=== PATIENT | male | born 1965 | race Caucasian/White ===

== ENCOUNTER 2016-11-10 19:27 | Emergency (ER) | payer OTHER ==
[~2016-11-10] VITALS: Ht 172.7 cm; Wt 68.0 kg
[~2016-11-10 19:27] MED LIST: DOXYCYCL HYC100 M4 PO; NAPROSYN500 MG PO; NO
[2016-11-10 23:20] VITALS: BP 134/77
== END 2016-11-10 23:29 | DRG 605 ==
LOC: ED 19:27
DX: S20.222A Contusion of left back wall of thorax, initial encounter (principal); F17.210 Nicotine dependence, cigarettes, uncomplicated; S10.93XA Contusion of unspecified part of neck, initial encounter; Y09 Assault by unspecified means

== ENCOUNTER 2021-06-26 16:56 | Observation (INO) | payer SELFPAY ==
[~2021-06-26] VITALS: Ht 175.3 cm; Wt 81.8 kg
[2021-06-26] MEDS ORDERED: LISINOPRIL40 MG PO (17:28)
[2021-06-26 17:59] LABS: IMMATURE GRANULOCYTES 0.6 % (0.0-5.0); MEAN CELL VOLUME 88.1 fL CALC (80.0-100.0); MEAN CORPUSCULAR HGB CONC 35.2 g/dL CAL (32.0-36.0); NEUT# 8.48 thou/uL (1.82-7.42); RED BLOOD COUNT 3.52 mill/uL (4.70-6.10); RED CELL DISTRI WIDTH 13.1 % (11.5-15.5)
[2021-06-26 18:02] LABS: HEMOGLOBIN 10.9 g/dl (14.0-18.0)
[2021-06-26 18:06] LABS: ALKALINE PHOSPHATASE 45 u/l (38-126); AMYLASE 50 u/l (30-110); BILIRUBIN, TOTAL 0.8 mg/dL (0.0-1.4); BUN 5 mg/dL (9-20); BUN/CREATININE RATIO 10 (12-20 (CALC)); CHLORIDE 94 mmol/l (95-108); CREATININE 0.6 mg/dL (0.7-1.3); ETHYL ALCOHOL 0 mg/dl (0-30); GFR > 60 ML/MIN (>=60 (CALC)); GFR FOR AFR.AMER. > 60 ML/MIN (>=60 (CALC)); LIPASE 82 u/l (23-300); POTASSIUM 3.3 mmol/l (3.5-5.1); SGOT/AST 39 u/l (17-59)
[2021-06-26 18:09] LABS: ALBUMIN 3.4 g/dL (3.2-5.0); ANION GAP 10 (6-22 (CALC)); CARBON DIOXIDE 20 mmol/l (22-30); SODIUM 121 mmol/l (137-146)
[2021-06-26 18:16] LABS: URINE BILIRUBIN - DIPSTICK NEGATIVE (NEGATIVE); URINE BLOOD DIPSTICK NEGATIVE (NEGATIVE); URINE COLOR YELLOW; URINE GLUCOSE - DIPSTICK NEGATIVE (NEGATIVE); URINE KETONE TRACE mg/dL (NEGATIVE); URINE LEUK ESTERASE NEGATIVE (NEGATIVE); URINE NITRITE - DIPSTICK NEGATIVE (Negative); URINE PH 7.5 (4.5-8.0); URINE PROTEIN - DIPSTICK NEGATIVE (NEG-TRACE); URINE UROBILINOGEN - DIPSTICK 0.2 E.U./dL (0.2)
[2021-06-26 18:52] LABS: ACT PARTIAL THROMBO TIME 25.1 SECONDS (20.0-32.5); PROTHROMBIN TIME 10.5 SECONDS (9.0-12.5)
[2021-06-26 23:00] VITALS: BP 140/88
[2021-06-27 03:45] VITALS: BP 155/90
[2021-06-27 06:16] LABS: IMMATURE GRANULOCYTES 0.8 % (0.0-5.0); MEAN CELL VOLUME 86.7 fL CALC (80.0-100.0); MEAN CORPUSCULAR HGB 30.8 pG CALC (26.0-32.0); MEAN CORPUSCULAR HGB CONC 35.5 g/dL CAL (32.0-36.0); NEUT# 5.05 thou/uL (1.82-7.42); RED BLOOD COUNT 4.42 mill/uL (4.70-6.10); RED CELL DISTRI WIDTH 13.4 % (11.5-15.5)
[2021-06-27 06:17] LABS: HEMATOCRIT 38.3 % (39.0-50.0); HEMOGLOBIN 13.6 g/dl (14.0-18.0)
[2021-06-27 06:27] LABS: ANION GAP 13 (6-22 (CALC)); BUN 5 mg/dL (9-20); BUN/CREATININE RATIO 9 (12-20 (CALC)); CARBON DIOXIDE 24 mmol/l (22-30); CHLORIDE 94 mmol/l (95-108); CREATININE 0.6 mg/dL (0.7-1.3); GFR > 60 ML/MIN (>=60 (CALC)); GFR FOR AFR.AMER. > 60 ML/MIN (>=60 (CALC)); SODIUM 127 mmol/l (137-146)
[2021-06-27 06:33] LABS: POTASSIUM 4.4 mmol/l (3.5-5.1)
[2021-06-27 07:19] VITALS: BP 117/70
[2021-06-27] MEDS ORDERED: LIPITOR10 M1 PO (09:21)
[2021-06-27] MEDS ORDERED: FAMOTIDINE20 M1 PO (09:21)
[2021-06-27] MEDS ORDERED: TRIAMCINOLON0.13 TOP (09:21)
[2021-06-27] MEDS ORDERED: NORVASC2.5 M1 PO (09:21)
[2021-06-27 10:22] VITALS: BP 117/80
[2021-06-27 15:45] VITALS: BP 117/80
[2021-06-27 16:41] VITALS: BP 176/98
[2021-06-27 19:08] VITALS: BP 115/71
[2021-06-28 00:15] VITALS: BP 120/74
[2021-06-28 04:00] VITALS: BP 137/83
[2021-06-28 04:49] LABS: HEMATOCRIT 36.7 % (39.0-50.0); HEMOGLOBIN 12.7 g/dl (14.0-18.0); IMMATURE GRANULOCYTES 0.6 % (0.0-5.0); MEAN CELL VOLUME 89.5 fL CALC (80.0-100.0); MEAN CORPUSCULAR HGB CONC 34.6 g/dL CAL (32.0-36.0); NEUT# 5.02 thou/uL (1.82-7.42); RED BLOOD COUNT 4.1 mill/uL (4.70-6.10)
[2021-06-28 05:07] LABS: ALBUMIN 3.7 g/dL (3.2-5.0); ALKALINE PHOSPHATASE 46 u/l (38-126); BUN 9 mg/dL (9-20); BUN/CREATININE RATIO 11 (12-20 (CALC)); CARBON DIOXIDE 21 mmol/l (22-30); CREATININE 0.8 mg/dL (0.7-1.3); GFR > 60 ML/MIN (>=60 (CALC)); GFR FOR AFR.AMER. > 60 ML/MIN (>=60 (CALC)); POTASSIUM 4.5 mmol/l (3.5-5.1); SGOT/AST 26 u/l (17-59); TOTAL PROTEIN 6.4 g/dL (6.3-8.2)
[2021-06-28 05:08] LABS: ANION GAP 12 (6-22 (CALC)); BILIRUBIN, TOTAL 0.4 mg/dL (0.0-1.4); CHLORIDE 106 mmol/l (95-108); SODIUM 134 mmol/l (137-146)
[2021-06-28 07:18] VITALS: BP 116/72
[2021-06-28 10:58] VITALS: BP 125/75
== END 2021-06-28 12:24 | disposition home or self-care (01) | DRG 641 ==
LOC: ED 16:56 → ED-I 21:00 → ED 21:27 → MS2 21:28
PROVIDERS: ADMIT Internal Medicine; ATTEND Internal Medicine
DX: E87.1 Hypo-osmolality and hyponatremia (principal); K59.00 Constipation, unspecified; F15.10 Other stimulant abuse, uncomplicated; I10 Essential (primary) hypertension; F17.210 Nicotine dependence, cigarettes, uncomplicated; Z20.822 Contact with and (suspected) exposure to COVID-19
CPT/HCPCS: G0378; Q9967